=== PATIENT | female | born 1950 | race Caucasian/White ===

== ENCOUNTER 2023-04-15 13:30 | Outpatient (RCR) | payer OTHER, SELFPAY | END 2023-06-05 11:18 | disposition home or self-care (01) | LOC: HO.OT 13:30 | PROVIDERS: PCP Family Medicine; Visit Provider Family Medicine | DX: I89.0 Lymphedema, not elsewhere classified (principal) | CPT/HCPCS: 97140; 97166 ==

== ENCOUNTER 2024-12-08 12:42 | Outpatient (AMB) | payer BC, SELFPAY ==
--- OUTSIDE RECORDS SUMMARY | 2022-08-27 09:30 | XMS_ITS | Continuity of Care Document ---
Author Organization [facility] Address [address] [place] [address] Phone Care Team Providers Care Photographic Colorist Name Role Phone Osmar HUYNH FACS RVT Jonny SAXENA Unavailable Unavailable Allergies, Adverse Reactions, Alerts Substance Reaction Status Criticality piroxicam Active No Information OXYCODONE TEREPHTHALATE Active No I nformation OXYCODONE HCL Active No Information aspirin Active No Information Medications Medication Instructions Dosage Effective Dates (start - stop) Status Comments doxycycline monohydrate 100 mg capsule - Active losartan 25 mg tablet - Active Procedures Procedure Date Office/Outpt E&M Established 25 Mins Jul Duplex Scan-extrem Veins; Uni/ Endovenous Laser, 1st Vein Endovenous Laser, 1st Vein Endovenous laser vein addon Advance Directives Directive Yes / No Effective Date File Name No Information Encounters Encounter Description Practice Location Reason(s) For Visit Diagnoses Date Provider Providers Copied on Encounter Office/Outpt E&M Established 25 Mins [facility], [address], [place], [id number], [place] tel:[phone] [facility] Body mass index (BMI) 39.0-39.9, adultVenous insufficiency (chronic) (peripheral) Jul- 3 Osmar UHYNH FACS RVT HEMANTH Sommer. [address], [place], [address], [place]. tel:[phone] Referring Provider: Stan Lara, [address], [place], [address]. tel:[phone] [facility], [address] [place] [address] [address], [place], [id number], [place] tel:[phone] [facility] [place] [facility] for f/u exam aft trtmt for cond oth than malig neoplmVenous insufficiency (chronic) (peripheral) 3 Osmar HUYNH FACS T HEMANTH Sommer. [address] [place] [address], [place], [address], [place]. tel:[phone] Referring Provider: Stan Lara, [address], [place], [address]. tel:[phone] [facility], [address] [place] [address] [address], [place], [id number], [place] tel:[phone] [facility] [place] Venous insufficiency (chronic) (peripheral) 3 Osmar HUYNH FACS Braydon Sommer. [address] [place] [address], [place], [address], [place]. [phone] Referring Provider: Stan Lara, [address], [place], [address]. tel:[phone] [facility], [address] [place] [address] [address], [place], [id number], [place] tel:[phone] [facility] [place] Venous insufficiency (chronic) (peripheral) 3 Osmar HUYNH FACS Braydon Sommer. [address] [place] [address], [place], [address], [place]. tel:[phone] Referring Provider: Stan Lara, [address], [place], [address]. tel:[phone] Family History Family Member Type Diagnosis Age At Onset No Information Payers Payer name Insurance type Covered constitution party ID Pio MOSER (s) [id number] Social History Type Description Quantity Date Captured Comments Alcohol Use Details Caffeine Use Details Unknown Tobacco Use Status Never smoked tobacco 2022 Smoking Status Never smoker Non-Smoking Tobacco Use Details : No Details Available : No Details Available Sex Female Vital Signs Date / Time: Height Weight BMI Pulse Rate Blood Pressure Temperature Respiratory Rate Body Surface Area Head Circumference Head Circ. Percentile Wt./Kane. Percentile BMI percentile Pulse Ox Inhaled Ox 1:54 PM 59.00 in 88.451 kg (195.00 lbs) 39.3 8 kg/m eter (2) 1.92 meter(2) Chief Complaint And Reason For Visit No Information Reason For Referral Reason For Referral No Information Plan Of Treatment Date Type Action Status Goal Diet education completed History Of Present Illness Encounter Date Complaint History Of Prese nt Illness No Information Functional Status Date Functional Assessmen t No Information Instructions Date Instruction Additional Infor mation Giving Encouragement to Exercise Related to Body mass index [BMI] 39.0-39.9, adult Diet education Related to Body mass index [BMI] 39.0-39.9, adult Assessments Type Assessment Date assessment Body mass index [BMI] 39.0-39.9, adult assessment Venous insufficiency (chronic) ( peripheral) Patient Care Teams Name Effective Dates (start - stop) Status Members No Information
[2024-12-08 12:44] VITALS: BP 130/80; PULSE 72; O2SAT 97; BMI 41.1
--- NOTE | 2024-12-08 12:44 | MHC.OFFVIS ---
Vital Signs 12/08/24 12:44 Height 5 ft 0.08 in Weight 211 lb BMI 41.1 BP 130/80 Blood Pressure Location Lt brachial Position Sitting Pulse 72 Pulse Source Pulse Oximeter Pulse Oximetry (%) 97 Oxygen Delivery Method Room Air Intake Visit Reasons: OA Intake Note: Patient presents today for an OA follow up. Allergies acetaminophen (From Percocet) Allergy (Mild, Verified 12/08/24 12:49) HALLUCINATIONS oxycodone (From Percocet) Allergy (Mild, Verified 12/08/24 12:49) HALLUCINATIONS piroxicam (From Feldene) Allergy (Mild, Verified 12/08/24 12:49) HOT SPOT ON KNEE HPI HPI OA: Details: left arm swelling with soreness started after left shoulder replacement 4 months ago. She has good range of motion of her left shoulder. After surgery she had weakness in her left hand. SHe completed OT and is able to blaster helper her left hand arm recently. She has been referred to be seen by a hand surgeon for evaluation. She has had chronic swelling in her legs and most recently she saw lymphedema specialist who confirmed that she has lymphedema. Rheumatology history: I saw patient 11/30/2023 for new patient evaluation, where she was diagnosed with fibromyalgia. She has osteopenia with moderate fracture wrists on bone density from November 2017 with lowest T-score-2.2 left femoral neck, FRAX score a probability of major osteoporotic fracture is 17% and hip fracture risk to present. She also has osteoarthritis of bilateral feet including right midfoot and follows with wound care rn who has recommended surgery to patient. She has failed topical treatments and oral NSAIDs. She also has a history of lumbar spine osteoarthritis with pain improved with physical therapy. [facility] Medical History (Updated 12/08/24 @ 15:53 by Rios Funes MD) Acquired lymphedema Sleep apnea Colon polyp Dyslipidemia Diverticulitis Hyperlipidemia Basal cell carcinoma Osteoarthritis Osteoarthritis of feet, bilateral Osteoarthritis of midtarsal joint of right foot Lower limb pain, posterior Acquired flat foot Other specified disorders of bone density and structure, multiple sites Fibromyalgia Surgical History (Updated 12/08/24 @ 12:53 by Camelia Mullins CMA) History of appendectomy History of left shoulder replacement History of left knee replacement History of total right knee replacement History of lobectomy of thyroid Physical Exam Vital Signs: Last Vital Signs Pulse 72 12/08/24 12:44 BP 130/80 12/08/24 12:44 Pulse Ox 97 12/08/24 12:44 Oxygen Delivery Method Room Air 12/08/24 12:44 BMI result Body Mass Index 41.1 Const Other: General: Comfortable CVS: RRR Respiratory: clear to auscultation bilaterally. Good respiratory effort Skin: No lesions seen MSK: No tenderness of joints. She has normal range of motion of upper extremities including wrists. She has soft tissue swelling of left forearm with tenderness on palpation. She has atrophy of 1st and 2nd interosseous muscles of left hand. Results Reviewed Results Reviewed: [facility] EMR CIS reviewed. She had right lower extremity ultrasound with Doppler July 2024, which ruled out DVT. Assessment & Plan Assessment & Plan (1) Left arm swelling: Comment: She has developed left forearm swelling with soreness after left shoulder arthroplasty, which occurred 4 months ago. Differential diagnosis includes deep venous thrombosis versus lymphedema. She was recently diagnosed with lymphedema affecting her lower extremities. Code(s): M79.89 - Other specified soft tissue disorders Category: Medical Plan: Left upper extremity ultrasound with Doppler to rule out DVT ordered. If ultrasound does not reveal a DVT, I will ask her to follow up with her lymphedema specialist for further evaluation and management of left arm lymphedema. Return to clinic PRN Orders: Orders US venous duplex UE LT Today M79.89 - Other specified soft tissue disorders Coding Level of Care Code Est Pt Level 3 (64323) Complex EM visit Add On G2211 Diagnoses Left arm swelling M79.89
--- OUTSIDE RECORDS SUMMARY | 2024-12-08 12:45 | XMS_ITS | Patient Health Record ---
Author Organization [facility] Address [address] [place] [address] Care Team Providers Care Funeral Limousine Driver Name Role Phone Stan [place] MD Primary Care Provider Marbella Laws Unavailable [phone] Allergies Allergen (clinical drug ingredient) Drug/Non Drug Allergy documented on EMR Reaction Allergy Type Onset Date Status piroxicam Feldene Unknown Drug Allergy Active Percodan Unknown Drug Allergy Active Reason For Referral No Information Medications Medication SIG (Take, Route, Frequency, Duration) Notes Start Date End Date Status Calcium 600 + D Acti ve Crotan 10 % APPLY 2-4 GMS TO RIG HT FOOT TWICE DAILY AFTER COMPOUND; Duration: 29 Active Medrol carey 4mg as directed orally a s directed; Duration: 6 days 01/12/2024 Activ e Losartan Potassium 100 MG 1 tablet Orally Once a day Active Magnesium 300 MG 1 capsule with a benny l Orally Once a day Active Multivitamin Active Social History Tobacco Use: Social History Observation Description Date Details (start date - stop date) Never Smoker NA - NA Tobacco use other than smoking: Question Answer Notes Are you an other tobacco user? No Tobacco Control (Standard) Question Answer Notes Tobacco use: Nonsmoker Additional Findings: Tobacco non-user Current no nsmoker AUDIT-C (Standard) Question Answer Notes Did you have a drink containing alcohol in the p ast year? No Points 0 Interpretation Negative Problems Problem Type SNOMED Code ICD Code Onset Dates Problem Status W/U Status Risk Notes Problem Primary osteoarthritis of left foot (M19.072) Active confirmed Problem Osteoarthritis of midtarsal joint of right foot ([id number] ) Osteoarthritis of midtarsal joint of right foot (M19.071) Active confirmed Vital Signs Blood pressure diastolic 87 mm Hg 09/15/2024 Height 4ft 11in in 09/15/2024 Blood pressure systolic 140 mm Hg 09/15/2024 Weight 196 lbs 09/15/2024 BMI 39.58 kg/m2 09/15/2024 Encounters Encounter Location Date Provider Diagnosis [address] [address] 01/12/2024 Marbella Perica Pain in right foot M79.671 ; Osteoarthritis of midtarsal joint of right foot M19.071 ; Pain in right ankle and joints of right foot M25.571 ; Bursitis of right foot M77.51 ; Bone spur of left foot M77.52 and Primary osteoarthritis of left foot M19.[address] [address] 02/24/2024 Marbella Perica Pain in right foot M79.671 ; Osteoarthritis of midtarsal joint of right foot M19.071 ; Pain in right ankle and joints of right foot M25.571 ; Bursitis of right foot M77.51 ; Bone spur of left foot M77.52 and Primary osteoarthritis of left foot M19.[address] [address] 09/15/2024 Marbella Perica Edema, lower extremi ty R60.0 ; Onychomycosis B35.1 ; Pain in right toe(s) M79.674 and Pain in left toe(s) M79.[address] [address] 01/12/2024 Marbella Garciaa [address] [address] 08/29/2024 Marbella Fernandes [address] [address] 10/31/2024 Marbella Fernandes Assessments Encounter Date Diagnosis (ICD Code) Assessment Notes Treatment Notes Treatment Clinical Notes Section Notes 01/12/2024 Pain in right foot (ICD-10 - M79.671) 01/12/2024 Osteoarthritis of midtarsal joint of right foot (ICD-10 - M19.071) 02/24/2024 Pain in right foot (ICD-10 - M79.671) 02/24/2024 Osteoarthritis of midtarsal joint of right foot (ICD-10 - M19.071) 09/15/2024 Onychomycosis (ICD-10 - B35.1) 09/15/2024 Edema, lower extremity (ICD-10 - R60.0) 09/15/2024 Pain in right toe(s) (ICD-10 - M79.674) 02/24/2024 Pain in right ankle and joints of right foot (ICD-10 - M25.571) 01/12/2024 Pain in right ankle and joints of right foot (ICD-10 - M25.571) 01/12/2024 Bursitis of right foot (ICD-10 - M77.51) 02/24/2024 Bursitis of right foot (ICD-10 - M77.51) 09/15/2024 Pain in left toe(s) (ICD-10 - M79.675) 01/12/2024 Bone spur of left foot (ICD-10 - M77.52) 02/24/2024 Bone spur of left foot (ICD-10 - M77.52) 02/24/2024 Primary osteoarthritis of left foot (ICD-10 - M19.072) 01/12/2024 Primary osteoarthritis of left foot (ICD-10 - M19.072) Plan Of Treatment Pending Test Test Name Order Date X ray : Foot, left 3V 01/12/2024 X ray : Foot, right 3V 01/12/2024 Insurance Providers Payer Name Payer Address Payer Phone Subscriber Number Group Number Insured Name Patient Relationship to Insured Coverage Start Date Coverage End Date Eileen Chery [id number] JULIO Rivera [phone] [id number] Chad Ford Spouse - patient is the spouse of the insured Medical (General) History Medical History History ICD Code Arthritis Back,Hip,and Knee pain skin cancer Diverticulosis Psoriasis/eczema Hypertension thyroid Measles Chicken pox Joint implants/screws Hepatic Armando Fibromyalgia Plantar Fibroma Bursitis Surgical History Surgery Date(Month/Year) Osteotomy w/Screw Left Foot First Metata rsal 2006 Plate & Screws First Metatarsal [place] al Joint 2012 Kidney stones 2014 Removal of Plate & Screw in Toe 2014 Volumetric w/2D Multiplanar Left Foot 20 19 Cataract surgery, bilateral 2020 Vein surgery 2011, 2022 Superficial Basil Cell Carcinoma 2023 Appendectomy 2023 D&C 1988 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
--- OUTSIDE RECORDS SUMMARY | 2024-12-08 12:45 | XMS_ITS | Clinical Summary ---
Author Organization [facility] Address [address] [place] [address] Care Team Providers Care Die Cast Patternmaker Name Role Phone Stan Sun MD Primary Care Provider [phone] Allergies Active Allergy Reactions Criticality Noted Date Comments Hydrocodone-Acetaminoph en GI intolerance 09/26/2024 Hydromorphone GI intolerance 09/26/2024 Oxycodone Psychiatric 09/26/2024 Oxycodone-Aspirin 09/26/2024 Piroxicam 09/26/2024 Other Reaction(s): Order percopsiformes Medications aspirin 325 mg tablet Take 1 tablet (325 mg total) by mouth 1 (one) time each day. for 14 days 07/19/19 25 Active losartan (COZAAR) 100 mg tablet See Instructions, TAKE 1 TABLET DAILY, # 90 tablet, 3 Refills, Maintenance, 06/14/24 2:33:00 PM EST, [facility], 148.6, cm, 05/30/24 15:30:00 EST, Height, 92.8, kg, 04/11/24 10:41:00 EST, Dry Weight 06/14/19 25 Active polyethylene glycol (Golytely) 236-22.74-6.74 -5.86 gram solution Take 4L by mouth once for one dose. May substitue any PEG. Starting at 6PM the night before your procedure drink 1 8oz glasses at your own pace until you complete half of the gallon. Finish 2nd half of the gallon 5 hours before your procedure. 4000 mL 11/08/19 25 025 Discontinued bisacodyL (DULCOLAX) 5 mg EC tablet Take 2 tablets by mouth right before beginning bowel prep. See instructions provided by the office 2 tablet 11/08/19 25 025 Discontinued Active Problems Problem Noted Date Diagnosed Date Functional diarrhea 09/26/2024 Assessment & Plan (09/26/2024 5:21 PM EDT): Intermittent No alarm symptoms Longstanding Continue Pepto-Bismol as needed We also discussed a trial of a dairy free diet. Adenomatous polyp of colon 09/26/2024 Assessment & Plan (09/26/2024 5:21 PM EDT): [place] 07/2019 (5yr) Dr. Harley Pt to discuss the need for prophylactic antibiotics with her surgeon (recent left total shoulder 07/2024) - typically not indicated for colonoscopy, however with so recent, defer to surgeon Fibromyalgia 09/26/2024 MGUS (monoclonal gammopathy of unknown significa nce) 09/26/2024 OA (osteoarthritis) 09/26/2024 HTN (hypertension) 09/26/2024 HLD (hyperlipidemia) 09/26/2024 Hypothyroid 09/26/2024 Kidney stones 09/26/2024 Encounters Date Type Department Care Team Description 11/21/2024 8:08 AM EDT Anesthesia Event [facility] Endoscopy [address] [place] [address] Vlad Marcelo DO 11/21/2024 7:35 AM EDT - 11/21/2024 11:59 PM EDT Hospital Encounter [facility] Endoscopy [address] [place] [address] Jayden Naranjo MD Georgette, Nathaniel, CRNA Adenomatous polyp of colon, unspecified part of colon Discharge Disposition: Home or Self Care 10/25/2024 Telephone Gastroenterology - [place] [address] [facility] [address] [facility] [address] [place] [address] Marcie Arechiga LPN Anticoagulation (Colonoscopy on 11/21/[address] Naranjo) 09/26/2024 8:50 AM EDT Office Visit Gastroenterology - [address] [place] [address] Sacha Vega PA Functional diarrhea (Primary Dx); Anal bleeding; Adenomatous polyp of colon, unspecified part of colon from Last 3 Months Surgical History Surgery Date Site/Laterality Comments APPENDECTOMY THYROIDECTOMY TOTAL KNEE ARTHROPLASTY Bilateral TOTAL SHOULDER ARTHROPLASTY 07/02/2024 - 07/29/2024 Left COLONOSCOPY 07/02/2019 - 07/30/2019 TA x2, left sided tics (5yr) Dr. Harley Medical History Medical History Date Comments Hyperlipidemia Hypertension Sleep apnea treated with continuous positive air way pressure (CPAP) Social History Tobacco Use Types Packs/Day Years Used Date Smoking Tobacco: Never Smokeless Tobacco: Never Tobacco Cessation:Counseling Given: Not Answered Alcohol Use Standard Drinks/Week Comments Yes 0 (1 standard drink = 0.6 oz pur e alcohol) OCASIONAL Interpersonal Safety Answer Date Record ed Physical Abuse 11/21/2024 Verbal Abuse 11/21/2024 Comments No Sex and Gender Information Value Date Recorded Sex Assigned at Not on file Legal Sex Female 8:07 PM EDT Gender Identity Not on file Sexual Orientation Not on file Obstetrics History Last Filed Vital Signs Vital Sign Reading Time Taken Comments Blood Pressure 166/78 11/21/2024 8:41 AM EDT Pulse 64 11/21/2024 8:41 AM EDT Temperature 36.5 C (97.7 F) 11/21/2024 8:26 AM EDT Respiratory Rate 15 11/21/2024 8:41 AM EDT Oxygen Saturation 99% 11/21/2024 8:41 AM EDT Inhaled Oxygen Concentration - - Weight 95.7 kg (211 lb) 09/26/2024 8:28 AM EDT Height 149.9 cm (4' 11 ) 09/26/2024 8:28 AM EDT Body Mass Index 42.62 09/26/2024 8:28 AM EDT Plan of Treatment Health Maintenance Due Date Last Done Comments Cholesterol Screening (Lipid Panel) 03/27/2024 Depression Screening 03/27/2024 Hepatitis C Screening 03/27/2024 Osteoporosis Screening (Bone Density Screening) 03/27/2024 Social Influencers of Health Screening 03/27/2024 COVID-19 Vaccine (8 - Moderna risk season) 2024 02/12/2024, 03/27/2023, 03/07/2022, Additional history exists Hypertension/CHF/CAD Annual BMP Blood Test 09/26/2024 Influenza Vaccine (#1) 2025 , 03/14/2023, 03/07/2022, Additional history exists Falls Risk Assessment 11/21/2025 11/21/2024 DTaP,Tdap,and Td Vaccines (3 - Td or Tdap) 05/22/2034 05/22/2024, 03/03/2013 Colorectal Cancer Screening: Colonoscopy 11/21/2034 11/21/2024 Zoster Vaccines Completed 11/26/2018, 07/03, 04/09/2014 RSV Immunization Adult Patients Completed 06/18/2023 Pneumococcal Vaccine: 50+ Years Completed 05/22/2024, 08/28/2015, 04/16/2014 HIB Vaccines Aged Out No longer eligi ble based on patient's age to complete this topic HPV Vaccines Aged Out No longer eligi ble based on patient's age to complete this topic Hepatitis A Vaccines Aged Out No long er eligible based on patient's age to complete this topic Hepatitis B Vaccines Aged Out No long er eligible based on patient's age to complete this topic IPV Vaccines Aged Out No longer eligi ble based on patient's age to complete this topic MMR Vaccines Aged Out No longer eligi ble based on patient's age to complete this topic Meningococcal ACWY Vaccine Aged Out N o longer eligible based on patient's age to complete this topic Meningococcal B Vaccine Aged Out No l onger eligible based on patient's age to complete this topic RSV Immunization Patients Under 20 months Aged Out No longer eligible based on patient's age to complete this topic Varicella Vaccines Aged Out No longer eligible based on patient's age to complete this topic Procedures Procedure Name Priority Date/Time Associated Diagnosis Comments COLONOSCOPY Routine 11/21/2024 8:20 AM EDT Adenomatous polyp of colon, unspecified part of colon from Last 3 Months Results * COLONOSCOPY Anesthesia - MAC; SP ENDOSCOPY (11/21/2024 8:20 AM EDT) Anatomical Region Laterality Modality Other 11/21/2024 8:02 AM EDT Impressions 11/21/2024 8:22 AM EDT - Diverticulosis in the sigmoid colon. - Non-bleeding internal hemorrhoids. - The examination was otherwise normal on direct and retroflexion views. - No specimens collected. Recommendation: - Discharge patient to home. - High fiber diet. - Continue present medications. - Return to GI clinic as previously scheduled. Narrative 11/21/2024 8:22 AM EDT [facility] GI Patient Name: Marshal Ford Procedure Date: 11/21/2024 8:02 AM Date of : 1950 Age: 74 Room: ROOM 14 Gender: Female Note Status: Finalized Attending MD: Jayden Naranjo MD, Procedure Date No Time: 11/21/2024 Procedure: Colonoscopy Indications: High risk colon cancer surveillance: Personal history of colonic polyps Providers: Jayden Naranjo MD Referring MD: Jayden Naranjo MD Medicines: Monitored Anesthesia Care Complications: No immediate complications. Estimated Blood Loss: Estimated blood loss: none. Procedure: Pre-Anesthesia Assessment: - ASA Grade Assessment: II - A patient with mild systemic disease. - After reviewing the risks and benefits, the patient was deemed in satisfactory condition to undergo the procedure. After I obtained informed consent, the scope was passed under direct vision. Throughout the procedure, the patient's blood pressure, pulse, and oxygen saturations were monitored continuously.The Colonoscope was introduced through the anus and advanced to the cecum, identified by appendiceal orifice and ileocecal valve. The colonoscopy was performed without difficulty. The patient tolerated the procedure well. The quality of the bowel preparation was good. Findings: Scattered small and large-mouthed diverticula were found in the sigmoid colon. Non-bleeding internal hemorrhoids were found during retroflexion. The hemorrhoids were medium-sized. The exam was otherwise without abnormality on direct and retroflexion views. Procedure Code(s): --- Professional --- G0105, Colorectal cancer screening; colonoscopy on individual at high risk Diagnosis Code(s): --- Professional --- Z86.010, Personal history of colonic polyps CPT copyright 2020 [employer]. All rights reserved. The codes documented in this report are preliminary and upon shell fisherman review may be revised to meet current compliance requirements. Jayden Naranjo MD 11/21/2024 8:22:16 AM This report has been signed electronically.Jayden Naranjo MD Number of Addenda: 0 Note Initiated On: 11/21/2024 8:02 AM Scope In: Scope Out: Endoscopy Department at [facility] - [address] [place] [id number] Procedure Note Jayden Naranjo MD - 11/21/2024 [facility] GI Patient Name: Marshal Ford Procedure Date: 11/21/2024 8:02 AM Date of : 1950 Age: 74 Room: ROOM 14 Gender: Female Note Status: Finalized Attending MD: Jayden Naranjo MD, Procedure Date No Time: 11/21/2024 Procedure: Colonoscopy Indications: High risk colon cancer surveillance: Personalhistory of colonic polyps Providers: Jayden Naranjo MD Referring MD: Jayden Naranjo MD Medicines: Monitored Anesthesia Care Complications: No immediate complications. Estimated Blood Loss: Estimated blood loss: none. Procedure: Pre-Anesthesia Assessment: - ASA Grade Assessment: II - A patient with mild systemic disease. - After reviewing the risks and benefits, thepatient was deemed in satisfactory condition to undergo the procedure. After I obtained informed consent, the scope was passed under direct vision. Throughout theprocedure, the patient's blood pressure, pulse, and oxygen saturations were monitored continuously.The Colonoscope was introduced through the anus and advanced to the cecum, identified by appendiceal orifice and ileocecal valve. The colonoscopy was performed without difficulty. The patient tolerated the procedure well. The quality of the bowel preparation was good. Findings: Scattered small and large-mouthed diverticula were found in the sigmoid colon. Non-bleeding internal hemorrhoids were found during retroflexion. The hemorrhoids were medium-sized. The exam was otherwise without abnormality ondirect and retroflexion views. Procedure Code(s): --- Professional --- G0105, Colorectal cancer screening; colonoscopy on individual at high risk Diagnosis Code(s): --- Professional --- Z86.010, Personal history of colonic polyps CPT copyright 2020 [employer]. All rights reserved. The codes documented in this report are preliminary and upon shell fisherman reviewmay be revised to meet current compliance requirements. Jayden Naranjo MD 11/21/2024 8:22:16 AM This report has been signed electronically.Jayden Naranjo MD Number of Addenda: 0 Note Initiated On: 11/21/2024 8:02 AM Scope In: Scope Out: Endoscopy Department at [facility] - [address] [place] [phone] IMPRESSION: - Diverticulosis in the sigmoid colon. - Non-bleeding internal hemorrhoids. - The examination was otherwise normal on directand retroflexion views. - No specimens collected. Recommendation: - Discharge patient to home. - High fiber diet. - Continue present medications. - Return to GI clinic as previously scheduled. Jayden Naranjo MD GI~PROCEDURE ORDERABLES Final Result from Last 3 Months Insurance MEDICARE [facility] Care Teams Die Cast Patternmaker Relationship Specialty Start Date End Date Stan Sun MD [address] [place] [address] PCP - General Family Medicine 06/28/24
--- OUTSIDE RECORDS SUMMARY | 2024-12-08 12:46 | XMS_ITS | Data Portability ---
Author Organization [place] - [facility], [facility] Address [address] [place] [address] Care Team Providers Care Computer Graphic Artist Name Role Phone KENNETH ZHOU Primary Care Provider Assessment No assessment recorded. Plan of Treatment Reminders Order Date Submit Date Provider Last Modified By Organization Details Last Modified Time Details Appointments RECHECK 15 2024 02:45P M Nory Lagunas MD Not available Not available Not available Lab None recorded. Referral occupatio nal therapist , hand referral - DIANGOSIS : Left hand edema, stiffness s/p Left shoulder replaceme nt 5 - Edema managemen t - Hand/Fing er/Wrist ROM - Hand dexterity , horse race starter strengthe maryam 10/28/ 025 [email or web address] Not available 11/02/2024 09:51:05 physical therapist referral - S/p Left reverse total shoulder arthropla sty, 5 VISITS: 2x/week x 12+ weeks THERAPY START: 5 Dislocati on Precautio ns x 12 weeks: AVOID - Shoulder hyperexte nsion - Abduction + ER - Adduction + extension + IR - Lifting or supportin g body weight with operated arm WEEKS 0 - 5 POSTOP - Goal: Allow glenoid in-growth , avoid dislocati on, protect subscapul edith repair - Sling at all times except for PT, home exercises , showering - No shoulder ROM except that required for taking sling on and off Strictly avoid AROM - Absolutel y NO shoulder extension or active IR for 6 weeks - Maintain pillow behind operative elbow when sitting or in bed to keep elbow in front of body - Reinforce ment of dislocati on precautio ns - AROM of elbow, wrist and hand with arm at side no resistanc e or weight - Ice 3 4x daily WEEKS 6 - 9 POSTOP - Goal: Begin deltoid strengthe maryam while avoiding dislocati on, protectin g subscapul edith repair - Wear sling in uncontrol led settings (in public), otherwise begin to wean sling use - Slowly advance PROM to tolerance in FE, ER - Begin AAROM and AROM in FE, ER and abduction - Begin supine and advance to seated/st anding - Wand or cane for flexion, ER, IR and abduction - Supervise d mary alice martins - Begin PROM in IR to tolerance , up to 50 degrees in the scapular plane - Reinforce ment of dislocati on precautio ns - AROM of elbow, wrist and hand with arm at side no resistanc e or load greater than cup of coffee - Ice following exercises WEEKS 10 - 12 POSTOP - Goal: Increase function and strength - Progress ROM to full - Begin submaxima l, pain-free deltoid isometric s in the scapular plane WEEKS 13 - 15 POSTOP - Goal: Strengthe maryam - No ROM restricti ons, encourage full AROM in all direction s - May begin IR behind the back, but do not pursue aggressiv tracy: this is often the last motion to come back/may not return completel y - Incorpora te resistive bands and light weights for deltoid strengthe maryam - Begin submaxima l isometric s for rotator cuff (scaption , ER and IR). Should be PAIN FREE, stop if pain with initiatio n of these exercises - May incorpora te pool therapy if incision completel y closed: PROM, AAROM, pendulums and walking --> gradually progress to AROM - Weight restricti on ~5 lbs WEEKS 16+ POSTOP: Progress strengthe maryam, return to more normal activity - Increase resistanc e of strengthe maryam exercises , progressi ng to up to 10lbs by 6 months postop - Return to sports: - Swimming: begin with breast and side stroke; overhead strokes may be difficult until ROM is improved - Golf: May begin putting at 3 months; chipping at 4 months, beginning with half swings; stock car driver at 6 months - Tennis/pi ckle ball: ball against wall, VERY light rallies at 4 months; no competiti ve games until after 6 months - No contact sports for at least 6 months 2024 025 [email or web address] Not available 08/15/2024 15:25:28 Procedures None recorded. Surgeries None recorded. Imaging XR, shoulder, 2 or more view - L rTSA 3 view rm 6 2024 025 [facility] Office, [address], [address], [place], [address], 11/02/2024 09:51:04 XR, shoulder, 2 or more view - L rTSA sx 3 view rm 215 2024 025 [facility], [address], [address], [place], [address], 08/15/2024 15:25:28 XR, knee, 4 or more view - CYDNEY KNEE RM 203 4V 2024 025 [facility] Office, [address], [address], [place], [address], 06/30/2024 14:08:38 Medication Orders Colace 100 mg capsule 2024 025 [email or web address], [address] [place], [address], 07/18/2024 12:57:26 acetamino phen 500 mg tablet 2024 025 [facility], [address] [place], [address], 07/18/2024 13:02:21 aspirin 325 mg tablet 2024 025 [facility], [address] [place], [address], 07/18/2024 12:57:18 hydromorp victor m 2 mg tablet 2024 025 [facility], [address] [place], [address], 07/18/2024 12:57:30 Patient TargetsNo targets recorded. Patient InstructionsNo instructions recorded. Reason for Referral Physical Therapist Referral for History of artificial joint S/p Left reverse total shoulder arthroplasty, 07/19/2024VISITS: 2x/week x 12+ weeksTHERAPY START: 08/30/2024Dislocation Precautions x 12 weeks: AVOID- Shoulder hyperextension- Abduction + ER- Adduction + extension + IR- Lifting or supporting body weight with operated armWEEKS 0 - 5 POSTOP - Goal: Allow glenoid in-growth, avoid dislocation, protect subscapularis repair- Sling at all times except for PT, home exercises, showering- No shoulder ROM except that required for taking sling on and off Strictly avoid AROM- Absolutely NO shoulder extension or active IR for 6 weeks- Maintain pillow behind operative elbow when sitting or in bed to keep elbow in front of body- Reinforcement of dislocation precautions - AROM of elbow, wrist and hand with arm at side no resistance or weight- Ice 3 4x dailyWEEKS 6 - 9 POSTOP - Goal: Begin deltoid strengthening while avoiding dislocation, protecting subscapularis repair- Wear sling in uncontrolled settings (in public), otherwise begin to wean sling use- Slowly advance PROM to tolerance in FE, ER- Begin AAROM and AROM in FE, ER and abduction - Begin supine and advance to seated/standing - Wand or cane for flexion, ER, IR and abduction - Supervised pulleys okay- Begin PROM in IR to tolerance, up to 50 degrees in the scapular plane- Reinforcement of dislocation precautions- AROM of elbow, wrist and hand with arm at side no resistance or load greater than cup of coffee- Ice following exercisesWEEKS 10 - 12 POSTOP - Goal: Increase function and strength- Progress ROM to full- Begin submaximal, pain-free deltoid isometrics in the scapular plane WEEKS 13 - 15 POSTOP - Goal: Strengthening- No ROM restrictions, encourage full AROM in all directions - May begin IR behind the back, but do not pursue aggressively: this is often the last motion to come back/may not return completely- Incorporate resistive bands and light weights for deltoid strengthening- Begin submaximal isometrics for rotator cuff (scaption, ER and IR). Should be PAIN FREE, stop if pain with initiation of these exercises- May incorporate pool therapy if incision completely closed: PROM, AAROM, pendulums and walking --> gradually progress to AROM- Weight restriction ~5 lbsWEEKS 16+ POSTOP: Progress strengthening, return to more normal activity - Increase resistance of strengthening exercises, progressing to up to 10lbs by 6 months postop - Return to sports: - Swimming: begin with breast and side stroke; overhead strokes may be difficult until ROM is improved - Golf: May begin putting at 3 months; chipping at 4 months, beginning with half swings; stock car driver at 6 months - Tennis/pickle ball: ball against wall, VERY light rallies at 4 months; no competitive games until after 6 months - No contact sports for at least 6 months Referring Physician: Nory Lagunas, Orthopedic Surgery, Encounter Date: 08/01/2024 DIANGOSIS: Left hand edema, stiffness s/p Left shoulder replacement 07/19/2024- Edema management- Hand/Finger/Wrist ROM- Hand dexterity, horse race starter strengthening Referring Physician: Nory Lagunas, Orthopedic Surgery, Encounter Date: 10/28/2024 Results Created Date Observation Date Name Description Value Unit Range Abnormal Flag Note LastModifiedBy Organization Detail LastModifiedTime 06/03/1906/03/2024 CBC WITH DIFFE RENTI AL/PL ATELE T WBC 7.0 K/mm3 4.0-11 .0 normal Not Available [address], [address], 06/03/2024 16:11:53 06/03/1906/03/2024 CBC WITH DIFFE RENTI AL/PL ATELE T RBC 4.35 M/mm3 4.20-5 .40 normal Not Available [address], [address], 06/03/2024 16:11:53 06/03/19 25 06/03/2024 CBC WITH DIFFE RENTI AL/PL ATELE T hemoglobin 13.3 gm/dL 11.7-1 5.5 normal Not Available [address], [address], 06/03/2024 16:11:53 06/03/19 25 06/03/2024 CBC WITH DIFFE RENTI AL/PL ATELE T hematocrit 41.2 % 35.7-4 5.8 normal Not Available [address], [address], 06/03/2024 16:11:53 06/03/19 25 06/03/2024 CBC WITH DIFFE RENTI AL/PL ATELE T MCV 94.7 fL 80.0-1 00.0 normal Not Available [address], [address], 06/03/2024 16:11:53 06/03/19 25 06/03/2024 CBC WITH DIFFE RENTI AL/PL ATELE T MCH 30.6 pg 27.0-3 4.0 normal Not Available [address], [address], 06/03/2024 16:11:53 06/03/19 25 06/03/2024 CBC WITH DIFFE RENTI AL/PL ATELE T MCHC 32.3 g/dL 33.0-3 7.0 below low normal Not Available [address], [address], 06/03/2024 16:11:53 06/03/19 25 06/03/2024 CBC WITH DIFFE RENTI AL/PL ATELE T RDW 44.9 fL <47.0 Not Available [address], [address], 06/03/2024 16:11:53 06/03/19 25 06/03/2024 CBC WITH DIFFE RENTI AL/PL ATELE T platelets 183 K/mm3 150-46 0 normal Not Available [address], [address], 06/03/2024 16:11:53 06/03/19 25 06/03/2024 CBC WITH DIFFE RENTI AL/PL ATELE T neutrophils 47.1 % 44-76 normal Not Available [address], [address], 06/03/2024 16:11:53 06/03/19 25 06/03/2024 CBC WITH DIFFE RENTI AL/PL ATELE T lymphs 45.3 % 15-43 above high normal Not Available [address], [address], 06/03/2024 16:11:53 06/03/19 25 06/03/2024 CBC WITH DIFFE RENTI AL/PL ATELE T monocytes 6.9 % 4.5-10 .5 normal Not Available [address], [address], 06/03/2024 16:11:53 06/03/19 25 06/03/2024 CBC WITH DIFFE RENTI AL/PL ATELE T eos 0.3 % 0-6 normal Not Available [address], [address], 06/03/2024 16:11:53 06/03/19 25 06/03/2024 CBC WITH DIFFE RENTI AL/PL ATELE T basos 0.3 % 0-2 normal Not Available [address], [address], 06/03/2024 16:11:53 06/03/19 25 06/03/2024 CBC WITH DIFFE RENTI AL/PL ATELE T neutrophils (absolute) 3.3 K/mm3 1.3-7. 0 normal Not Available [address], [address], 06/03/2024 16:11:53 06/03/19 25 06/03/2024 CBC WITH DIFFE RENTI AL/PL ATELE T lymphs (absolute) 3.2 K/mm3 0.8-3. 1 above high normal Not Available [address], [address], 06/03/2024 16:11:53 06/03/19 25 06/03/2024 CBC WITH DIFFE RENTI AL/PL ATELE T monocytes(ab solute) 0.5 K/mm3 0.4-0. 9 normal Not Available [address], [address], 06/03/2024 16:11:53 06/03/19 25 06/03/2024 CBC WITH DIFFE RENTI AL/PL ATELE T eos (absolute) 0.0 K/mm3 0.0-0. 4 normal Not Available [address], [address], 06/03/2024 16:11:53 06/03/19 25 06/03/2024 CBC WITH DIFFE RENTI AL/PL ATELE T baso (absolute) 0.0 K/mm3 0.0-0. 1 normal Not Available [address], [address], 06/03/2024 16:11:53 06/03/19 25 06/03/2024 CBC WITH DIFFE RENTI AL/PL ATELE T immature granulocytes 0.1 % Not Available [address], [address], 06/03/2024 16:11:53 06/03/19 25 06/03/2024 CBC WITH DIFFE RENTI AL/PL ATELE T immature grans (abs) 0.0 K/mm3 Not Available [address], [address], 06/03/2024 16:11:53 06/03/19 25 06/03/2024 CBC WITH DIFFE RENTI AL/PL ATELE T NRBC 0.0 #/100 _WBC' s Not Available [address], [address], 06/03/2024 16:11:53 06/03/19 25 06/03/2024 CBC WITH DIFFE RENTI AL/PL ATELE T hematology comments: Commen t AUTOM ATED DIFFE RENTI AL MPV 10.9 FL 9.4-1 2.4 N ABS. NRBC 0.0 K/MM3 N Not Available [address], [place], [address], 06/03/2024 16:11:53 06/03/19 25 06/03/2024 SEDIM ENTAT ION RATE- WESTE RGREN sedimentatio n rate-westerg carolyn 11 mm/HR 0-20 normal Not Available [address], [address], 06/03/2024 16:11:54 06/03/19 25 06/03/2024 C-GILBERT CTIVE PROTE IN, QUANT C-reactive protein, quant <0.3 mg/dL 0-0.5 Not Available [address], [address], 06/03/2024 16:11:56 06/14/19 25 06/14/2024 CT, shoul jose, w/o contr ast No observ ation record ed. [email or web address] [facility] [place] [address] [facility] [address], [place], [address], 06/14/2024 16:30:23 06/30/19 25 06/30/2024 XR, knee, 4 or more view [email or web address] ?Encry pted=s hAaTro YD8dLq bEUv6g %2BXZw aYqtaq 0bqfl% 2Fg9IQ a4ajBk vP9nXo QUaueC m3YtLR FvZlgJ JJ8mAn HZtai3 9t2758 AC0Kqb H%2BFV 6OjKiQ trMwF INTERFACE [facility] [address] [facility] [address], [place], [address], 06/30/2024 14:08:38 06/30/19 25 06/30/2024 XR, knee, 4 or more view [email or web address] ?Encry pted=s hAaTro YD8dLq bEUv6g %2BXZw aYqtaq 0bqfl% 2Fg9IQ a4ajBk vP9nXo QUaueC m3YtLR FvZlgJ JJ8mAn HZtai3 4l7880 AC0Kqb H%2BFV 6OjKiQ trMwF INTERFACE [facility] [address], [place], [address], 06/30/2024 14:08:40 07/19/19 25 07/19/2024 XR, shoul jose, 1 view No observ ation record ed. [email or web address] [place] [id number] [facility], [place], [address], 07/21/2024 07:22:04 08/02/19 25 08/01/2024 XR, shoul jose, 2 or more view [email or web address] ?Encry pted=s hAaTro YD8dLq bEUv6g %2BXZw aYqtaq 0bqfl% 2Fg9IQ a4ajBk vP9nXo QUaueC m3YtLR FvZlgJ JJ8mAn HZtai3 0a9402 AC0Kqb XyBVqG iKiQtr MwF INTERFACE [facility] [address], [place], [address], 08/01/2024 15:38:26 08/02/19 25 08/01/2024 XR, shoul jose, 2 or more view [email or web address] ?Encry pted=s hAaTro YD8dLq bEUv6g %2BXZw aYqtaq 0bqfl% 2Fg9IQ a4ajBk vP9nXo QUaueC m3YtLR FvZlgJ JJ8mAn HZtai3 2x3482 AC0Kqb XyBVqG iKiQtr MwF INTERFACE [facility] [address] [facility] [address], [place], [address], 08/01/2024 15:38:28 09/06/1909/05/2024 US, terrie x, aravind s, [facility] mity No observ ation record ed. [email or web address] [facility] [place] [address] [facility] [address], [place], [address], 09/06/2024 11:57:49 10/29/19 25 10/28/2024 XR, shoul jose, 2 or more view [email or web address] ?Encry pted=s hAaTro YD8dLq bEUv6g %2BXZw aYqtaq 0bqfl% 2Fg9IQ a4ajBk vP9nXo QUaueC m3YtLR FvZlgJ JJ8mAn HZtai3 4y1349 AC0Kla 32FWKa hKiQtr [facility] INTERFACE [facility] [address] [facility] [address], [place], [address], 10/28/2024 14:20:44 10/29/19 25 10/28/2024 XR, shoul jose, 2 or more view [email or web address] ?Encry pted=s hAaTro YD8dLq bEUv6g %2BXZw aYqtaq 0bqfl% 2Fg9IQ a4ajBk vP9nXo QUaueC m3YtLR FvZlgJ JJ8mAn HZtai3 0c1064 AC0Kla 32FWKa hKiQtr [facility] INTERFACE [facility] Office [address] [facility] [address], [place], [address], 10/28/2024 14:20:46 Result Notes Documentation Provider Name and Address Organization Details Recorded Time Xr, Knee, 4 Or More View : [email or web address] Encrypted=erMcEajFP2fZwgX Uv6g%2DIYynPpvhj1xzcy%2Fg 0VSp4jdEdmV7hCfZUettIt5Iq GCXnTzwUTA9zKrUYjdj62j635 8OI0FhlK%5FQK9KxOwDoeUfM Not Available [facility] 06/30/2024 14:0 8:39 Xr, Knee, 4 Or More View : [email or web address] Encrypted=yhDuNfbDW1pKtvT Uv6g%5FESddXhkpz2ascd%2Fg 8XLo5twBjbJ0gXgDHnfqBr0Ya OMLhEcjJSX9eJwAStjd86n606 4IW0WanL%7SDN1HpTqIifIrL Not Available [facility] 06/30/2024 14:0 8:41 Xr, Shoulder, 2 Or More View : [email or web address] Encrypted=bcRzPudDH1rGocO Uv6g%8JGVffNgizg7oedo%2Fg 8ZVy4ynNauJ4uBrKVfdvPt1Jp TOHdEnbQIA2dQtWShug62m099 1NO8SilTwILuZdAuQtwZkQ Not Available [facility] 08/01/2024 15:38: 27 Xr, Shoulder, 2 Or More View : [email or web address] Encrypted=vjOzRegHZ9kAskQ Uv6g%1OAHcqShoqo3odar%2Fg 0KMu1epHlxN2zTbRHihsQv3Hv UWIrZzwZUU3rZqEEzdi83r464 8AG3EijWlRPlYeOlWxwOpL Not Available [facility] 08/01/2024 15:38: 29 Xr, Shoulder, 2 Or More View : [email or web address] Encrypted=ahUjTftHE0bXxnH Uv6g%8PLPurCsdrm0nthk%2Fg 3WRz9eoNvfR0wCkVYmieZl6Nt CBNfYtsFCM4lSlJIouj97q581 0NN5Jvp93CGBjsRqIokCoB Not Available [facility] 10/28/2024 14:20: 45 Xr, Shoulder, 2 Or More View : [email or web address] Encrypted=upEzKerJN1jOrrS Uv6g%3CFIqtPlami3fljb%2Fg 4BRr0vmVprQ2hCbWEdczHi4Hy WMXeSjbUIQ7lMeCOnou57f490 0GA5Maw16QIIzzVdDojLoE Not Available [facility] 10/28/2024 14:20: 47 Problems Name Problem SNOMED Code Status Onset Date Resolution Date Notes Provider Name and Address Organization Details Recorded Time Pain of knee region 4986916479 Active 025 Jojo Lama [facility] 13:56:58 Problem Notes None recorded. Procedures Surgical History Date Name Laterality Status Provider Name and Address Organization Details Recorded Time 5 total shoulder replacement completed JAY CYR [facility] 08/01/2024 15:30:52 4 Sports Shoulder Bilateral completed Uriel Castrejon PA-C [address], [address], [facility] 01/19/2024 14:45:14 4 Sports Shoulder completed Uriel Castrejon PA-C [address] [place] [address], [address], [facility] 09/15/2023 12:56:03 2 Ankle/Foot Surgery completed CHELLE VALLADARES [facility] 01/19/2024 13:13:31 4 Ankle/Foot Surgery completed JAY CYR [facility] 05/06/2024 13:09:19 Imaging Results None recorded. Procedure Notes None recorded. Medical Equipment None Reported. Allergies Allergen ID Allergen Name Allergen Category Reaction Reaction Severity Criticality Documentation Date Start Date Code Code System Note Provider Name and Address Organization Details Recorded Time 790929 Feldene medicatio n Not available Not available Not available 09/15/2023 57725 8 RxNorm CHELLE BLAINE berrios [place] - [facility] 12:51:50 90020 Percodan medicatio n Not available Not available Not available 08/03/20232005 39670 RxNorm Aller gyRea ction : 'Skin React ion'; Not Available [facility] 11:24:51 Medications Name Sig Start Date Stop Date Status Note LastModified by Organization Details LastModified Time celecoxib 200 mg capsule TAKE 1 CAPSULE BY MOUTH DAILY NEEDED active Not Available Not Available No t Available cyclobenzap rine 10 mg tablet TAKE ONE TABLET BY MOUTH DAILY AT BEDTIME 05/06 completed Not Available Not Available Not Available amoxicillin 500 mg capsule 4 pills 1 hour prior to procedure 2024 active Not Available Not Available Not Avai lable acetaminoph en 325 mg tablet TAKE 2 TABLETS BY MOUTH EVERY 6 HOURS NEEDED FOR MODERATE PAIN 05/06 completed Not Available Not Available Not Available aspirin 325 mg tablet TAKE ONE TABLET BY MOUTH EVERY DAY FOR 14 DAYS active Not Available Not Available No t Available benzonatate 200 mg capsule TAKE ONE CAPSULE BY MOUTH THREE TIMES A DAY FOR 7 DAYS active Not Available Not Available No t Available tramadol 50 mg tablet TAKE ONE TABLET BY MOUTH THREE TIMES A DAY NEEDED FOR 7 DAYS 05/06 completed Not Available Not Available Not Available acetaminoph en 500 mg tablet TAKE TWO TABLETS BY MOUTH THREE TIMES A DAY active Not Available Not Available No t Available hydromorpho ne 2 mg tablet TAKE ONE TABLET BY MOUTH EVERY 4 HOURS active Not Available Not Available No t Available pseudoephed rine-guaife nesin ER 80-700 mg tablet,exte nded release 1-2 TABS EVERY 4-6 HRS PRN PAIN NOT TO EXCEED 8 TABS IN 24 HRS 06/22 completed Statu s: 'Disc ontin ued'; Not Available Not Available Not Available nystatin 100,000 unit/gram topical cream APPLY DAILY TO RASH UNDER BREASTS active Not Available Not Available No t Available clotrimazol e-betametha sone 1 %-0.05 % topical cream APPLY ONE BEAD TO THE AFFECTED AREA ONCE DAILY 05/06 completed Not Available Not Available Not Available losartan 25 mg tablet 09/14 completed Not Available Not Available Not Available docusate sodium 100 mg capsule TAKE ONE CAPSULE BY MOUTH EVERY DAY NEEDED active Not Available Not Available No t Available furosemide 20 mg tablet TAKE ONE TABLET BY MOUTH EVERY DAY active Not Available Not Available No t Available methylpredn isolone 4 mg tablets in a dose pack TAKE DIRECTED FOR 6 DAYS ACCORDING TO PACK DIRECTION S 01/18 completed Not Available Not Available Not Available albuterol sulfate HFA 90 mcg/actuati on aerosol inhaler INHALE ONE PUFF BY MOUTH THREE TIMES A DAY active Not Available Not Available No t Available ipratropium bromide 42 mcg (0.06 %) nasal spray USE TWO SPRAYS 3 TIMES DAILY INTRANASA LY 09/14 completed Not Available Not Available Not Available losartan 100 mg tablet 100 mg every day by oral route. active Not Available Not Available No t Available amoxicillin 875 mg-potassiu m clavulanate 125 mg tablet TAKE 1 TABLET BY MOUTH EVERY 12 HOURS 09/14 completed Not Available Not Available Not Available calcium active Not Available Not Avail able Not Available Multivitami n 50 Plus active Not Available Not Available No t Available oxycodone HCl-oxycodo ne-ASA 1 every 4 - 6 hours as needed. do not drive while on this medicatio n 02/10 completed Statu s: 'Disc ontin ued'; Not Available Not Available Not Available Lagevrio 200 mg capsule (EUA) TAKE FOUR CAPSULES BY MOUTH TWICE A DAY FOR 5 DAYS active Not Available Not Available No t Available magnesium (amino acid chelate, malate) 125 mg capsule Take by oral route. active Not Available Not Available No t Available Vitals Date Recorded Body height Body mass index (BMI) Body weight Provider Name and Address Organization Details Last Updated DateTime 06/30/2024 149.86 cm 38.4 kg/m2 50950.55 g Jojo Lama [place] - [facility] 06/30/2024 13:50:59 Date Recorded Body height Body mass index (BMI) Body weight Body temperature Systolic And Diastolic Provider Name and Address Organization Details Last Updated DateTime 07/11/2024 149.86 cm 40.2 kg/m2 70031.8 8 g 97.7 [degF] 124/82 mm[Hg] Rosario Smiley [place] - [facility] 12:13:06 Date Recorded Body height Body temperature Body mass index (BMI) Body weight Provider Name and Address Organization Details Last Updated DateTime 08/01/2024 149.86 cm 97.6 [degF] 40.2 kg/m2 56289.88 g JAY CYR [facility] 08/01/2024 15:30:39 Date Recorded Body height Body mass index (BMI) Body weight Provider Name and Address Organization Details Last Updated DateTime 08/31/2024 149.86 cm 40.2 kg/m2 65244.88 g Jojo Napierta [facility] 08/31/2024 15:29:48 Date Recorded Body height Body mass index (BMI) Body weight Provider Name and Address Organization Details Last Updated DateTime 10/28/2024 149.86 cm 40.2 kg/m2 95928.88 g JAY CYR [facility] 10/28/2024 14:15:20 Social History None recorded. Functional Status None recorded. Mental Status None recorded. Family History Nothing Reported. Medical History Condition Response Coronary Artery Disease N Anxiety/Depression N Emphysema N COPD N Pacemaker N Vascular Disease N Heart Trouble N Gastrointestinal Disease N Autoimmune disease N Inflammatory Joint disease N Orthotics N Arthritis Y Blood Clot N Acid Reflux (GERD) N Cancer N Stroke N Circulation Problems N Rheumatoid Arthritis N Arrhythmia N Headaches N Fibromyalgia N Allergies/Hayfever N Breathing or lung disorders N Nerve Disorders N Thyroid Problems Y Kidney/Bladder Problems N Anemia N Heart Attack (TN) N Cholesterol N Diabetes N Bleeding Disorder N Seizures/Epilepsy N AIDS/HIV N Congestive Heart Failure (CHF) N Asthma N Peripheral Vascular Disease N Sleep Apnea Y Hepatitis N Heart Disease N Pulmonary Embolism N Hypertension Y Osteoporosis N Gynecological HistoryNo gynecological history recorded. Obstetrics History GPAL:G 0 P 0 0 0 0 Past Encounters Encounter ID Performer Location Encounter Start Date Encounter Closed Date Diagnosis/Indication Diagnosis SNOMED-CT Code Diagnosis ICD10 Code Diagnosis Note [id number] ROSELINE Pastrana [address] [place] [id number] 09/15/2023 12:43:19 09/15/2023 13:06:11 Full thickness rotator cuff tear [id number] M75.355 [id number] ROSELINE [facility] [address] [place] [address] 01/19/2024 13:08:04 01/19/2024 14:46:15 Full thickness rotator cuff tear [id number] M75.658 [id number] ROSELINE [facility] [address] [place] [address] 04/06/2024 08:05:46 05/02/2024 13:06:34 Pain of left shoulder joint [id number] M25.512 Localized, primary osteoarthritis of the shoulder region [id number] M19.257 [id number] MD Jose Luis Agu[facility] [address] [place] [address] 05/06/2024 13:00:53 06/06/2024 13:44:27 Pain of left shoulder joint [id number] M25.442 [id number] MD Jose Luis [facility] [address] [place] [address] 05/20/2024 13:41:09 06/12/2024 10:29:58 Osteoarthritis of left glenohumeral joint [id number] M19.243 [id number] MD MAUREEN Aguilar [address] [place] [address] 07/11/2024 10:57:04 07/27/2024 07:41:06 Osteoarthritis of joint of left shoulder region [id number] M19.827 [id number] ROSELINE Pearl [address] [place] [address] 06/30/2024 13:49:56 07/20/2024 06:56:47 History of operative procedure on knee [id number] Z96.361 [id number] MD MAUREEN Aguilar [address] [place] [address] 08/01/2024 14:46:42 08/15/2024 15:25:28 History of artificial joint [id number] Z96.481 [id number] ROSELINE Pearl [address], [place] [address] 08/31/2024 15:11:55 09/15/2024 14:23:21 Postoperative visit [id number] Z48.89 [id number] MD MAUREEN Aguilar [facility] [address] [place] [address] 10/28/2024 14:01:40 11/02/2024 09:51:04 History of artificial joint [id number] Z96.612 Health Concerns Section Related Observation LastModified by Organization Detai ls LastModified Time None Recorded Concern Status LastModified by Organization Details LastModified Time None Recorded Advance Directives Directive None Recorded Payers Insurance Date Sequence Insurance Name Policy Number Policy Vega Covered Member ID Vega Member ID Guarantor Name 11/02/2024 1 OLENA [id number] Marshal Ford [id number] Marshal Ford Notes Date Note Type Note Provider Name and Address Organization Details Recorded Time 06/30/2024 text/html I am seeing the patient today under the supervision of Dr. Méndez who was available but who did not see the patient.HPI:Patient returns with a history of bilateral total knee replacements done by Dr. Zuleta. She fell in May. She slipped on ice and fell forward and landed more on the left total knee than the right total knee. She told me that the knee did bruise more on the left side. However, the pain has subsided. She has some mild discomfort over the medial side of the knee at times. She is able to go up and downstairs without issue. She denies fevers or chills. She did have blood work done prior to her visit which is normal for any sign of infection.Past family, medical, social history and review of systems has been reviewed, updated and is located in the patient s chart.Examination:The patient is well appearing and in no apparent distress. Alert and oriented x3. Gait is symmetric. No significant swelling about either knee. Her incisions are well-healed. She has tenderness over the medial aspect of the knee in the area of the pes bursa region bilaterally. Range of motion easy full extension and flexion to 120 without pain. Good strength and stability of the total knee replacements. Peripheral, vascular, lymphatic examination, skin, neurological, coordination, reflexes, sensation are within normal limits.X-rays ordered, obtained and reviewed at [facility] 3 views of both total knees reviewed demonstrate good implant interfaces in good alignment.Impression: Status post bilateral total knees with contusions to the total knee replacements and mild pes bursitisPlan:I reviewed the x-rays and diagnosed with the patient. We discussed conservative management for the discomfort over the medial side of the knees. Activity modification discussed. P.r.n. NSAIDs can be used. We discussed the risks associated with NSAID use. We discussed topical treatments. We discussed a home exercise program. I answered her questions were satisfaction today. She will follow up annually. Best Guzman PA-C [address] [place] [address] [address], [place], [address], [facility] 06/30/2024 14:20:52 07/11/2024 text/html SURGICAL DECISIO N MAKING Issue: Left shoulder massive rotator cuff tear, mild to moderate glenohumeral arthritis HPI: This is a 73 year old right hand dominant woman followed in our office for > 3 years for bilateral shoulder complaints. Has been receiving cortisone injections for both shoulders, most recently 01/19/2024. Unfortunately, injections seem to be working less well as time goes on, with most recent injection not providing more than a week or two of relief for the left shoulder. In addition to pain, she also notes decreasing function in the left shoulder with inability to raise the arm for the past month or 2. Very uncomfortable sleeping at night. Denies crepitus. Denies numbness or tingling. Prescribed Celebrex, which made her sick to her stomcah, and tramadol, which made her woozy. Given ongoing symptoms refractory to conservative management, we are planning to move forward with surgical intervention. PMH: Arthritis, hypertension, hypothyroidism PSH: Ankle/foot surgery 2003 Meds: Acetaminophen, cyclobenzaprine, docusate, losartan Allergies: Feldene, Percodan Social Hx: Retired. Family Hx: noncontributory ROS: Negative x12 except as noted above in the HPI Past family, medical, social history and review of systems have been reviewed and updated on the medical history sheet saved to the patient's chart. A 12-point review of systems is negative x12 except as noted above and/or on the medical history sheet. Examination: Pleasant 73-year-old woman in no acute distress. 4 feet 11 inches, 190 pounds. Neuro: Awake, alert and orientedNeck: SuppleHEENT: Oropharynx clearChest: No increased work of breathing, no audible wheezeHeart: Regular rate by palpation peripherallyAbdomen: Soft nontender nondistended MSK: On exam of the left upper extremity, skin over the shoulder is intact. No effusion, no gross atrophy. Quite tender to palpation along the lateral brachium. Active forward elevation 60 degrees, passive 165. No crepitus noted. Passive external rotation 75 degrees with 5 degree ER lag. Internal rotation L4. 4/5 strength with resisted external rotation with pain. Positive drop arm sign. Mildly positive Yergason's. Sensation intact in an axillary distribution. Fires EPL, FPL and intrinsics. Hand is warm and well-perfused.Imaging : 4 views of the Left shoulder ordered and obtained at [facility] 05/06/2024 were reviewed during the visit. These demonstrate good preservation of glenohumeral joint space. No mich narrowing of acromiohumeral interval distance. Type II acromion. Humeral head centered on axillary view. No dystrophic calcium deposition.Left shoulder MRI performed at [facility] 05/15/2024 independently reviewed by me and Ortho PACS during the visit today. This demonstrates a massive tear of the rotator cuff that involves the supraspinatus and infraspinatus. Torn tissue is retracted to the level of the glenoid. Possible upper border subscapularis tear. Long head biceps tendon runs normally within the bicipital groove, however there is significant biceps tendinopathy appreciated. Severe atrophy and fat infiltration of the infraspinatus and to lesser extent supraspinatus on T1 sagittals. Type II acromion. Mild AC arthrosis. Narrowing of glenohumeral joint surfaces within the superior aspect of the joint. 3D CT scan of the left shoulder performed at [facility] 06/14/2024 uploaded to [employer] planning software, independently reviewed by me during the visit today. This demonstrates glenoid retroversion of 8 degrees, superior inclination 11 degrees. High riding humeral head on this supine study. 57% posterior humeral subluxation. Impression: 73-year-old cvzkg-bpkl-pclolpmo woman with acute atraumatic onset of left shoulder pain and weakness over the past month or 2. Previous MRI from September 2022 demonstrated an intact rotator cuff; updated MRI now demonstrates a massive, retracted rotator cuff tear. Given ongoing symptoms refractory to conservative management, we are planning to move forward with surgical intervention. Plan: To address both rotator cuff and arthritis at the same time, would recommend a reverse total shoulder arthroplasty. The technical details of surgery were reviewed during the visit. The typical downtime and recovery from such a surgery was discussed, and postoperative restrictions and instructions reviewed with appropriate handouts given. We reviewed the risks of surgery, including but not limited to: Bleeding, infection, injury to nerves/blood vessels/muscles/tendo ns, pain, stiffness, failure to heal, hardware complications, need for further surgery. The patient expressed understanding of this discussion. Questions were elicited and answered to the patient's satisfaction. Postoperative pain medication prescriptions (Dilaudid, tylenol) e-prescribed to [facility] from the office today. Postop DVT prophylaxis will be: Aspirin 325 daily x2 weeks. The postoperative medication regimen was discussed in detail, including the risks and benefits of each medication in turn. We will have the patient go down stairs at the end of the appointment to be fit for a postoperative sling. The patient would benefit from a preoperative nerve block, to be performed by anesthesia, for postoperative pain control. DME: The patient has weakness and instability of their extremity which requires stabilization for this semi-rigid/rigid orthosis to improve their function. Verbal and written instructions for the use and application of this item were given. Patient was instructed that should the brace result in increased pain, decreased sensation, increased swelling or an overall worsening of their medical condition, to please contact our office immediately. [employer] speech recognition deburring technician software was used to create portions of this document. An attempt at proofreading has been made to minimize errors. Please call for corrections. Nory Lagunas MD [address] [place] [address] [address], [place], [address], [facility] 07/18/2024 13:00:26 08/01/2024 text/html surgery: Left shoulder by [facility], 07/19/2024 Interval History: Marshal returns today in follow-up now 2 weeks out from surgery as above. Doing fairly well. Weaning from pain medications. Tolerating the sling and abiding by postop restrictions. We have not yet started physical therapy. No issues with incision. Does have quite a bit of swelling in her hand/wrist, but comes in with elbow quite open and hand hanging down. No numbness or tingling in the arm or hand. Past family, medical, social history and review of systems have been reviewed and updated on the medical history sheet saved to the patient's chart. A 12-point review of systems is negative x12 except as noted above and/or on the medical history sheet. Examination: Pleasant 74-year-old woman in no acute distress. On exam of the Left upper extremity, sling is in place, appropriately positioned. Incision is healing nicely with minimal swelling noted. No evidence for wound dehiscence, spitting suture, or fluid collections. Able to maintain the shoulder abducted against gravity without difficulty. Sensation intact in an axillary distribution. Fires EPL, FPL and intrinsics. Hand is warm and well perfused. Imaginv of the left shoulder ordered and obtained at [facility] today were reviewed during the visit. These demonstrate a reduced glenohumeral joint. Bone graft evident between baseplate and sav[place]onga glenoid on Grashey view. Mild residual superior inclination noted. Central post and all peripheral screws have excellent purchase within the glenoid vault. No evidence for scapular fracture, glenoid notching, or component loosening. Impression: 73-year-old gxayx-fjce-lwvjjxvf woman , now 2 weeks out from surgery as above. Doing fairly well. Plan: Will continue with sling use for another 4 weeks, though I have indicated that the sling may come off to allow the arm to rest in the lap when the patient is seated in a couch/chair in a quiet environment. Will continue with elbow, wrist and finger range of motion, but will continue to avoid shoulder range of motion or weightbearing through the operative arm. A physical therapy prescription and reverse total shoulder arthroplasty postoperative protocol were given to the patient today, along with instructions to set up therapy to begin approximately 08/30/2024. Copies of these will also be scanned into the patient's chart for future reference as needed. The patient will follow-up in 4 weeks with Mr. Best Guzman PA-C for next recheck. At that point, I would anticipate discontinuing sling and ensuring that physical therapy has been set up. We will continue to hold off on any weightbearing through the arm or range of motion behind the back until 3 months postop, however. Will hold off on xrays at the next visit as long as the patient is doing well, but will plan to obtain a new set at the 3 month visit to assess healing. [facility] speech recognition deburring technician software was used to create portions of this document. An attempt at proofreading has been made to minimize errors. Please call for corrections. Nory Lagunas MD [address], [place], [address], [facility] 08/01/2024 15:52:37 08/31/2024 text/html I am seeing the patient today under the supervision of Dr. Méndez who was available but who did not see the patient. HPI: The patient returns for follow-up of a Left reverse total shoulder arthroplasty. The patient is 6 weeks postop. The patient's pain is controlled well. The patient is weaning from the sling and has started formal therapy. Past family, medical, social history and review of systems has been reviewed, updated and is located in the patient s chart. Examination: The patient is well appearing and in no apparent distress. Alert and oriented x3. Gait is symmetric. No Significant swelling, warmth, erythema the Left shoulder. The patient's incision is well-healed. The patient's passive range of motion is forward elevation 90 and external rotation to 40. Peripheral, vascular, lymphatic examination, skin, neurological, coordination, reflexes, sensation are within normal limits. Impression: 6 weeks status post Left reverse total shoulder arthroplasty Plan: I reviewed postop protocols with the patient. The patient will continue to wean from the sling. The patient will continue with formal physical therapy. Activity modification discussed at length. The patient will avoid weightbearing with the right upper treatment and reaching behind her back. All questions answered to the satisfaction today. Follow-up in 6 weeks. Best Guzman PA-C [address], [place], [address], [facility] 08/31/2024 16:04:12 10/28/2024 text/html Surgery: Left shoulder [facility], 07/19/2024 Interval History: Marshal returns today in follow-up now 3 months out from surgery as above. Doing well. Continues in PT, making good progress with range of motion. Denies pain. No issues with incision. No numbness or tingling in the arm or hand, but is still struggling with stiffness and perceived weakness of the hand Past family, medical, social history and review of systems have been reviewed and updated on the medical history sheet saved to the patient's chart. A 12-point review of systems is negative x12 except as noted above and/or on the medical history sheet. Examination: Pleasant 74-year-old woman in no acute distress. On exam of the Left upper extremity, incision is healing nicely. Able to maintain the shoulder abducted against gravity without difficulty. Active forward elevation 165, passive 165. Passive ER 65 with negative ER lag. IR to back pocket. Sensation intact in an axillary distribution. Fires EPL, FPL and intrinsics. Hand is warm and well perfused. At the hand, mild residual edema to the wrist and fingers. Just about able to make a full fist, though with some tightness through the PIPs in particular. Imaginv of the Left shoulder ordered and obtained at [facility] today were reviewed during the visit. These demonstrate a reduced glenohumeral joint. Central post and all peripheral screws have excellent purchase within the glenoid vault. Good incorporation of bone graft between baseplate and [place]ong[place] glenoid. No evidence for scapular fracture, glenoid notching, or component loosening. Impression: 74-year-old jlwwl-pjxp-qdukmrem woman, now 3 months out from surgery as above. Doing well. Plan: Will refer the patient for dedicated hand therapy to work on edema management, dexterity/horse race starter strengthening exercises and range of motion of the wrist, hand and fingers. Will have the patient finish out the prescribed PT and transition to HEP. Encouraged to continue with stretching exercises, as motion will continue to improve for up to a year after surgery if we keep working at it. Now at 3 months may start in with some light strengthening, though would keep weight 5-10 lbs until after 6-month recheck. May also start to weightbear through the arm as needed and work on motion behind the back in a more concerted manner. Will plan for a return visit in another 3 months for next recheck with new xrays, and then again for an annual visit, yearly thereafter. Encouraged to call sooner, however, with any new issues or concerns that may arise. [employer] speech recognition deburring technician software was used to create portions of this document. An attempt at proofreading has been made to minimize errors. Please call for corrections. Nory Lagunas MD [address] [place], [place] [address] [address], [place], [address], [facility] 10/28/2024 15:03:51 OBGyn Episode No OBEpisode recorded.
== END 2024-12-08 13:22 | disposition home or self-care (01) ==
LOC: HO.RHES 12:43
PROVIDERS: PCP Family Medicine; Visit Provider Internal Medicine Rheumatology
DX: M79.89 Other specified soft tissue disorders (principal)
CPT/HCPCS: 99213

== ENCOUNTER 2024-12-08 13:44 | Outpatient (REF) | payer BC, SELFPAY ==
--- NOTE | ~2024-12-08 | US_ITS ---
EXAMINATION: US TRIPLEX UPPER EXTREMITY, LEFT CLINICAL INFORMATION: Swelling/edema, left upper extremity. COMPARISON: None available. TECHNIQUE: Color-flow triplex imaging with spectral analysis and compression Doppler was performed on the left upper extremity. FINDINGS: The left internal jugular, subclavian, and axillary veins, left brachiocephalic vein demonstrated normal spectral doppler waveforms . The brachial, basilic, cephalic, radial, and ulnar veins demonstrated normal spectral Doppler waveforms and compressibility. US/US venous duplex UE LT IMPRESSION: No acute deep venous thrombosis interrogated veins, left upper extremity. Negative for DVT. Electronically signed by: Srinivas Sandoval MD 12/08/2024 03:31 PM EDT
== END 2024-12-08 13:45 | disposition home or self-care (01) ==
LOC: HO.US 13:44
PROVIDERS: PCP Family Medicine; Visit Provider Internal Medicine Rheumatology
DX: M79.89 Other specified soft tissue disorders (principal)
CPT/HCPCS: 93971

== ENCOUNTER → 2024-12-08 13:49 | Outpatient (BNV) | payer BC, SELFPAY | PROVIDERS: PCP Family Medicine; Visit Provider Radiology Diagnostic Radiology | DX: R22.32 Localized swelling, mass and lump, left upper limb (principal) | CPT/HCPCS: 93971 ==